=== PATIENT | female | born 1990 | race Two or more races ===

== ENCOUNTER 2019-06-18 16:15 | Emergency (ER) | payer OTHER ==
[~2019-06-18] VITALS: Ht 165.1 cm; Wt 69.0 kg
[2019-06-18] MEDS ORDERED: ACETAMINOPHEN 325MG TABLET PO ONE (18:45)
[2019-06-18 20:46] VITALS: BP 120/81
== END 2019-06-18 20:46 | disposition home or self-care (01) ==
LOC: ER 16:15
DX: O99.89 Other specified diseases and conditions complicating pregnancy, childbirth and the puerperium (principal); R51 Headache; Z3A.09 9 weeks gestation of pregnancy; V49.49XA Driver injured in collision with other motor vehicles in traffic accident, initial encounter; Y93.89 Activity, other specified; Y92.410 Unspecified street and highway as the place of occurrence of the external cause
CPT/HCPCS: 76801; 99284